=== PATIENT | male | born 1970 ===

== ENCOUNTER 2018-10-19 05:37 | Emergency (ER) | payer SELFPAY ==
--- NOTE | 2018-10-19 07:25 | EDM.PDOC ---
ED HPI GENERAL MEDICAL PROBLEM - General Chief Complaint: Abdominal Pain Stated Complaint: SIDE PAIN Time Seen by Provider: 10/19/18 06:59 Source of Information: Reports: Patient, RN Notes Reviewed History Limitations: Reports: No Limitations - History of Present Illness INITIAL COMMENTS - FREE TEXT/NARRATIVE: The patient states that he lives in [place], but is up here for work. He states that 2 years ago he was hospitalized at [facility] for 3 days with fluid in his abdomen secondary to drinking alcohol. The patient states that he was told that his "liver was sweatin'", but he states that he was told that he does not have cirrhosis. Nevertheless, he received a 3 L paracentesis, and was on diuretics and lactulose for about one year. He followed up with his [facility]aper at [facility] for about one year, but was then under the impression that everything was okay and that he didn't need to take any more medications. He therefore has not been taking any medications, nor has he seen any doctor for any reason, for approximately one year. He has not restarted drinking, but over the past year, he believes that his abdomen has been filling up with fluid , causing upward pressure on his right hemidiaphragm and difficulty bending over. He is also complaining of low central back pain (he points over his sacral area) for the past 8 months to 1 year, believing that the low back pain is due to a combination of ascites and strain from work. The patient was hoping that I could perform a paracentesis today, which would then hold him over until he can follow-up with his [facility] Shaper at [facility] in January. When asked why, specifically, he came to the ED today, as opposed to following up as an outpatient, he replied that he has a day off today. The patient does not have a PCP. - Related Data Allergies Allergy/AdvReac Type Severity Reaction Status Date / Time No Known Allergies Allergy Verified 10/19/18 06:50 Home Meds: Home Meds . [No Known Home Meds] 10/19/18 [History] Past Medical History Gastrointestinal History: Reports: Cirrhosis (with ascites, by history) Musculoskeletal History: Reports: Fracture (left tibia) Psychiatric History: Reports: Addiction (alcohol) - Past Surgical History GI Surgical History: Reports: Other (See Below) (Paracentesis 2017) Musculoskeletal Surgical History: Reports: ORIF (left tibia) Social & Family History - Tobacco Use Smoking Status *Q: Former Smoker Years of Tobacco use: 40 Packs/Tins Daily: 1.5 Month/Year Tobacco Last Used: Quit August 2018 - Alcohol Use Alcohol Use History: Yes Date/Time of Last Drink Comment: Quit 2016 - Recreational Drug Use Recreational Drug Use: No - Living Situation & Occupation Living situation: Reports: , with Spouse 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 ED EXAM, GI/ABD - Physical Exam Exam: See Below Exam Limited By: No Limitations General Appearance: Alert, WD/WN, No Apparent Distress Eyes: Bilateral: Normal Appearance, EOMI Ears: Normal External Exam, Hearing Grossly Normal Nose: Normal Inspection Throat/Mouth: Normal Inspection, Normal Lips, Normal Voice, No Airway Compromise Head: Atraumatic, Normocephalic Neck: Normal Inspection, Full Range of Motion Respiratory/Chest: No Respiratory Distress, Lungs Clear, Normal Breath Sounds, No Accessory Muscle Use Cardiovascular: Normal Peripheral Pulses, Regular Rate, Rhythm, No Edema, No Gallop, No JVD, No Murmur, No Rub GI/Abdominal Exam: Normal Bowel Sounds, Soft, Non-Tender (including the RUQ), No Organomegaly, No Distention, No Abnormal Bruit, No Mass, Other (The abdomen is protruberant and there is likely ascites, but is soft, non-tense) (Male) Exam: Deferred Rectal (Males) Exam: Deferred Back Exam: Normal Inspection, Full Range of Motion. No: CVA Tenderness (L), CVA Tenderness (R) Extremities: Normal Inspection, Normal Range of Motion, No Pedal Edema, Normal Capillary Refill Neurological: Alert, Oriented, Normal Cognition, No Motor/Sensory Deficits Psychiatric: Normal Affect Skin Exam: Warm, Dry, Intact, Normal Color, No Rash Course - Vital Signs Last Recorded V/S: Last Vital Signs Temp 36.6 C 10/19/18 06:51 Pulse 70 10/19/18 06:51 Resp 18 10/19/18 06:51 BP 133/109 H 10/19/18 06:51 Pulse Ox 100 10/19/18 06:51 - Orders/Labs/Meds Orders: Active Orders 24 hr Category Date Time Status Bladder Scan [RC] ASDIRECTED Care 10/19/18 07:18 Active Chest 2V [CR] Stat Exams 10/19/18 07:17 Taken KUB [Abdomen 1V Flat] [CR] Stat Exams 10/19/18 07:18 Taken Labs: Laboratory Tests 10/19/18 10/19/18 10/19/18 Range/Units 07:32 07:32 07:32 WBC 7.57 (4.23-9.07) K/mm3 RBC 5.02 (4.63-6.08) M/mm3 Hgb 15.5 (13.7-17.5) gm/L Hct 45.5 (40.1-51.0) % MCV 90.6 (79.0-92.2) fl MCH 30.9 (25.7-32.2) pg MCHC 34.1 (32.2-35.5) g/dl RDW Std Deviation 40.3 (35.1-43.9) fL Plt Count 247 (163-337) K/mm3 MPV 10.0 (9.4-12.3) fl Neutrophils % (Manual) 53 (40-60) % Band Neutrophils % 0 (0-10) % Lymphocytes % (Manual) 38 (20-40) % Atypical Lymphs % 0 % Monocytes % (Manual) 6 (2-10) % Eosinophils % (Manual) 2 (0.8-7.0) % Basophils % (Manual) 1 (0.2-1.2) Platelet Estimate Adequate RBC Morph Comment Normal PT 12.1 (9.5-12.1) SECONDS INR 1.11 APTT 29 (24-31) SECONDS Sodium 139 (136-145) mEq/L Potassium 4.2 (3.5-5.1) mEq/L Chloride 104 (98-107) mEq/L Carbon Dioxide 26 (21-32) mEq/L Anion Gap 13.2 (5-15) BUN 15 (7-18) mg/dL Creatinine 1.0 (0.7-1.3) mg/dL Est Cr Clr Drug Dosing 88.38 mL/min Estimated GFR (MDRD) > 60 (>60) mL/min BUN/Creatinine Ratio 15.0 (14-18) Glucose 95 (74-106) mg/dL Calcium 9.3 (8.5-10.1) mg/dL Magnesium 1.8 (1.8-2.4) mg/dl Total Bilirubin 0.5 (0.2-1.0) mg/dL AST 23 (15-37) U/L ALT 42 (16-63) U/L Alkaline Phosphatase 63 (46-116) U/L Total Protein 7.8 (6.4-8.2) g/dl Albumin 4.0 (3.4-5.0) g/dl Globulin 3.8 gm/dL Albumin/Globulin Ratio 1.1 (1-2) - Re-Assessments/Exams Free Text/Narrative Re-Assessment/Exam: 10/19/18 07:19 As per the HPI, the patient is concerned that he has ascites, and, primarily out of convenience, he would like me to perform a paracentesis. On examination, the patient's abdomen is relatively full, but he certainly does not have tense ascites, and he does not have respiratory embarrassment - he was able to lie supine for examination without any difficulty whatsoever, and his oxygen saturation is 100% on room air. Based on his history, the patient probably has ascites, but I don't see an indication for an emergency paracentesis. Instead, we will draw some blood work, and get a chest x-ray, KUB, and bladder scan today , then I will refer him to the surgeon, who can review those labs, examine the patient, and decided if the patient would benefit from an outpatient paracentesis under ideal conditions. The patient is disappointed - it will likely mean him having to take a day off work, however, convenience does not equal an emergency. 10/19/18 07:55 2-view chest radiograph appears to be grossly normal. The cardiac silhouette is within normal limits. No pulmonary vascular congestion. No pleural effusions. No focal infiltrate. No pneumothorax. Formal read per the Radiologist pending. KUB appears to be grossly normal. There is a nonspecific bowel gas pattern. No bony abnormalities identified. Formal read per the Radiologist pending. 10/19/18 08:23 The post-void bladder scan is 0. 10/19/18 08:24 The patient's CBC, CMP, magnesium level, and PTT/INR are all completely normal. 10/19/18 08:26 Test results discussed with the patient. As above, today's workup is unremarkable. I will discharge him home with a referral to the surgeon. Departure - Departure Time of Disposition: 08:26 Disposition: Home, Self-Care 01 Condition: Good Clinical Impression: Ascites - Discharge Information *PRESCRIPTION DRUG MONITORING PROGRAM REVIEWED*: Not Applicable *COPY OF PRESCRIPTION DRUG MONITORING REPORT IN PATIENT MYNOR: Not Applicable Referrals: PCP,Not In Area [Primary Care Provider] - Zion Trejo MD [Physician] - Forms: ED Department Discharge Additional Instructions: You were seen in the emergency room with a history of ascites, requesting a paracentesis. Workup in the ER included blood work, a chest x-ray, and x-ray of her abdomen and pelvis, and a bladder scan. Your entire workup was normal. As discussed, the emergency department is not able to perform an ultrasound- guided paracentesis unless there is a genuine emergency. We recommend that you follow-up with the surgeon Dr. Zion Trejo at the next available appointment, to discuss the option of a paracentesis. If any other problems, please do not hesitate to return to the ER. - My Orders Last 24 Hours: My Active Orders 10/19/18 07:17 Chest 2V [CR] Stat 10/19/18 07:18 Bladder Scan [RC] ASDIRECTED KUB [Abdomen 1V Flat] [CR] Stat - Assessment/Plan Last 24 Hours: My Active Orders 10/19/18 07:17 Chest 2V [CR] Stat 10/19/18 07:18 Bladder Scan [RC] ASDIRECTED KUB [Abdomen 1V Flat] [CR] Stat
--- NOTE | 2018-10-21 09:39 | CR ---
Abdomen: Supine view of the abdomen was obtained. Comparison: No previous study. Bowel gas pattern is normal. No abnormal calcifications or soft tissue abnormality is seen. Bony structures are unremarkable. Impression: 1. No abnormality is identified on supine abdominal x-ray. Diagnostic code #1
--- NOTE | 2018-10-21 10:06 | CR ---
Chest: Two views of the chest were obtained. Comparisons: No prior chest x-ray. Heart size is normal. Tortuous thoracic aorta is seen. Lungs are clear. Bony structures are unremarkable. Impression: 1. Nothing acute is appreciated on two-view chest x-ray. Diagnostic code #1
== END 2018-10-19 08:38 | disposition home or self-care (01) ==
LOC: JD.ED 05:37
DX: R18.8 Other ascites (principal); Z87.891 Personal history of nicotine dependence
CPT/HCPCS: 36415; 51798; 71046; 71046-26; 74018; 74018-26; 80053; 83735; 85007; 85027; 85610; 85730; 99283; 99284-25